=== PATIENT | male | born 1975 | race Caucasian/White ===

== ENCOUNTER 2016-09-27 18:16 | Day surgery (SDC) | payer OTHER ==
[2016-09-27] MEDS ORDERED: Glucagon,Human Recombinant 1 MG Vial IVPUSH ONE (18:23)
--- NOTE | 2016-09-27 18:29 | EDM.PDOC ---
ED HPI GENERAL MEDICAL PROBLEM - General Chief Complaint: ENT Problem Stated Complaint: PIECE OF STEAK STUCK IN THROAT Time Seen by Provider: 09/27/16 18:20 Source of Information: Reports: Patient History Limitations: Reports: No Limitations - History of Present Illness INITIAL COMMENTS - FREE TEXT/NARRATIVE: HISTORY AND PHYSICAL: History of present illness: [Patient comes to the emergency room complaining of a piece of steak stuck in his throat. Occurred just prior to ER arrival while he was eating. He is unable to swallow his spit, food or liquids. States that he has had similar episodes over the past couple of years but he is always able to move the food by drinking water. He has not had any success with this today. He has otherwise been feeling well. Complains of pressure over his sternal/epigastric area. Is unable to drink any fluids, and he spits it up immediately after swallowing. No history of surgery or hospitalizations. Had 4 alcoholic beverages this evening prior to arriving in the ER. Does not have a local primary care provider and has not been seen for healthcare in 3 years.] Review of systems: As per history of present illness and below otherwise all systems reviewed and negative. Past medical history: As per history of present illness and as reviewed below otherwise noncontributory. Surgical history: As per history of present illness and as reviewed below otherwise noncontributory. Social history: No reported history of drug or alcohol abuse. Family history: As per history of present illness and as reviewed below otherwise noncontributory. Physical exam: HEENT: Atraumatic, normocephalic. Oral mucous membranes are pink and moist. Neck supple no lymphadenopathy. Trachea midline. Lungs: Clear to auscultation, breath sounds equal bilaterally. Heart: S1S2, regular rate and rhythm. Abdomen: Bowel sounds are normoactive throughout. Soft, nondistended. Negative for masses, guarding or rebound. Pelvis: Stable nontender. Genitourinary: Deferred. Rectal: Deferred. Extremities: Atraumatic, without deformity. Ambulates without difficulty. Neurovascular unremarkable. Neuro: Awake, alert, oriented. Motor and sensory unremarkable throughout. Exam nonfocal. Therapeutics: [Glucagon 1 mg IV] Impression: [Food impaction] Plan: [Patient has no improvement in his symptoms after Glucagon. Dr. Nelson is contacted at 1905 to consult on patient and presents to see patient at 1930. Patient will be taken for EGD. Disposition and discharge to be completed by Dr. Nelson.] Definitive disposition and diagnosis as appropriate pending reevaluation and review of above. throat area Pain Score (Numeric/FACES): 6 Sternum Pain Score (Numeric/FACES): 4 - Related Data Allergies Allergy/AdvReac Type Severity Reaction Status Date / Time No Known Allergies Allergy Verified 09/27/16 18:20 Home Meds: Home Meds . [No Known Home Meds] 09/27/16 [History] ED ROS ENT - Review of Systems Review Of Systems: ROS reveals no pertinent complaints other than HPI. ED EXAM, ENT - Physical Exam Exam: See Below Course - Vital Signs Last Recorded V/S: Last Vital Signs Temp 98.4 F 09/27/16 20:13 Pulse 94 09/27/16 20:13 Resp 20 09/27/16 20:27 BP 137/88 09/27/16 20:13 Pulse Ox 95 09/27/16 20:27 - Orders/Labs/Meds Orders: Active Orders 24 hr Category Date Time Status Verify Patient Consent Obtain [RC] ASDIRECTED Care 09/27/16 20:02 Active Nothing per Oral After Midnight Diet [DIET] Diet 09/27/16 Dinner Active Lactated Ringers [Ringers, Lactated] 1,000 ml Med 09/27/16 20:17 Active IV ASDIRECTED Medication Orders Lactated Ringer's (Ringers, Lactated) 1,000 mls @ 125 mls/hr IV ASDIRECTED DEREK Last Admin: 09/27/16 20:11 Dose: 125 mls/hr Meds: Medications Generic Name Dose Route Start Last Admin Trade Name Freq PRN Reason Stop Dose Admin Lactated Ringer's 1,000 mls @ 125 mls/hr 09/27/16 20:17 09/27/16 20:11 Ringers, Lactated IV 125 mls/hr ASDIRECTED DEREK Administration Discontinued Medications Generic Name Dose Route Start Last Admin Trade Name Freq PRN Reason Stop Dose Admin Dexamethasone Confirm 09/27/16 20:15 Dexamethasone Administered 09/27/16 20:16 Dose 20 mg .ROUTE .STK-MED ONE Fentanyl Confirm 09/27/16 20:15 Sublimaze Administered 09/27/16 20:16 Dose 100 mcg .ROUTE .STK-MED ONE Glucagon 1 mg 09/27/16 18:23 09/27/16 18:31 Glucagen IVPUSH 09/27/16 18:24 1 mg ONETIME ONE Administration Midazolam HCl Confirm 09/27/16 20:16 Versed 1 Mg/Ml Administered 09/27/16 20:17 Dose 2 mg .ROUTE .STK-MED ONE Ondansetron HCl Confirm 09/27/16 20:15 Zofran Administered 09/27/16 20:16 Dose 4 mg .ROUTE .STK-MED ONE Propofol Confirm 09/27/16 20:15 Diprivan 20 Ml Administered 09/27/16 20:16 Dose 200 mg .ROUTE .STK-MED ONE Succinylcholine Chloride Confirm 09/27/16 20:15 Succinylcholine In Ns Pf Administered 09/27/16 20:16 Dose 200 mg .ROUTE .STK-MED ONE Departure - Departure Time of Disposition: 20:37 Disposition: DC/Tfer to Other 70 Clinical Impression: Food impaction of esophagus Qualifiers: Encounter type: initial encounter Qualified Code(s): T18.128A - Food in esophagus causing other injury, initial encounter - Discharge Information
--- NOTE | 2016-09-27 20:02 | PCM.SN ---
- Free Text/Narrative Note: food impaction, h/p dictated; [id number]; proceed w egd w poss fb extraction; rb dw pt, included but not limited to, bleeding/sore throat/infection/perforation, pt concurs and proceed
[2016-09-27] MEDS ORDERED: fentaNYL 100 MCG/2 ML SDV ONE ×2 (20:15→20:52)
[2016-09-27] MEDS ORDERED: Succinylcholine/Normal Saline 200 MG/10 ML Syringe ONE (20:15)
[2016-09-27] MEDS ORDERED: Dexamethasone 4 MG/ML 5 ML MDV ONE (20:15)
[2016-09-27] MEDS ORDERED: Ondansetron 4 MG/2 ML SDV ONE (20:15)
[2016-09-27] MEDS ORDERED: Propofol 200 MG/20 ML SDV ONE (20:15)
[2016-09-27] MEDS ORDERED: Midazolam 1 MG/ML 2 ML SDV ONE (20:16)
[2016-09-27] MEDS ORDERED: Lactated Ringers 1,000 ML IV SCH (20:17)
--- NOTE | 2016-09-27 20:27 | PCM.PREANE ---
Preanesthetic Assessment - Anesthesia/Transfusion/Family Hx Anesthesia History: No Prior Anesthesia Family History of Anesthesia Reaction: No - Review of Systems Gastrointestinal: Difficulty swallowing Other: Reports: None - Physical Assessment O2 Sat by Pulse Oximetry: 95 Respiratory Rate: 20 Vital Signs: Last Vital Signs Temp 36.9 C 09/27/16 20:13 Pulse 94 09/27/16 20:13 Resp 20 09/27/16 20:13 BP 137/88 09/27/16 20:13 Pulse Ox 95 09/27/16 20:13 Height: 5 ft 11 in Weight: 116.8 kg ASA Class: 1E Mental Status: Alert & Oriented x3 Airway Class: Mallampati = 1 Dentition: Reports: Normal Dentition Thyro-Mental Finger Breadths: 3 Mouth Opening Finger Breadths: 3 ROM/Head Extension: Full - Allergies Allergies/Adverse Reactions: Allergies Allergy/AdvReac Type Severity Reaction Status Date / Time No Known Allergies Allergy Verified 09/27/16 18:20 - Blood Blood Available: No - Acknowledgements Anesthesia Type Planned: General Anesthesia Pt an Appropriate Candidate for the Planned Anesthesia: Yes Alternatives and Risks of Anesthesia Discussed w Pt/Guardian: Yes Pt/Guardian Understands and Agrees with Anesthesia Plan: Yes PreAnesthesia Questionnaire HEENT History: Reports: None Cardiovascular History: Reports: None Respiratory History: Reports: None Gastrointestinal History: Reports: None Genitourinary History: Reports: None Musculoskeletal History: Reports: None Neurological History: Reports: None Psychiatric History: Reports: None Endocrine/Metabolic History: Reports: None Hematologic History: Reports: None Immunologic History: Reports: None Oncologic (Cancer) History: Reports: None Dermatologic History: Reports: None - Infectious Disease History Infectious Disease History: Reports: MRSA - Past Surgical History Respiratory Surgical History: Reports: None Musculoskeletal Surgical History: Reports: Other (See Below) Other Musculoskeletal Surgeries/Procedures:: Hand surgery - SUBSTANCE USE Tobacco Use Within Last Twelve Months: Snuff/Dip (1 can per day) Recreational Drug Use History: No - HOME MEDS Home Medications: Home Meds . [No Known Home Meds] 09/27/16 [History] - CURRENT (IN HOUSE) MEDS Current Meds: Current Medications Lactated Ringer's (Ringers, Lactated) 1,000 mls @ 125 mls/hr IV ASDIRECTED DEREK Last Admin: 09/27/16 20:11 Dose: 125 mls/hr Discontinued Medications Dexamethasone (Dexamethasone) Confirm Administered Dose 20 mg .ROUTE .STK-MED ONE Stop: 09/27/16 20:16 Fentanyl (Sublimaze) Confirm Administered Dose 100 mcg .ROUTE .STK-MED ONE Stop: 09/27/16 20:16 Glucagon (Glucagen) 1 mg IVPUSH ONETIME ONE Stop: 09/27/16 18:24 Last Admin: 09/27/16 18:31 Dose: 1 mg Midazolam HCl (Versed 1 Mg/Ml) Confirm Administered Dose 2 mg .ROUTE .STK-MED ONE Stop: 09/27/16 20:17 Ondansetron HCl (Zofran) Confirm Administered Dose 4 mg .ROUTE .STK-MED ONE Stop: 09/27/16 20:16 Propofol (Diprivan 20 Ml) Confirm Administered Dose 200 mg .ROUTE .STK-MED ONE Stop: 09/27/16 20:16 Succinylcholine Chloride (Succinylcholine In Ns Pf) Confirm Administered Dose 200 mg .ROUTE .STK-MED ONE Stop: 09/27/16 20:16
[2016-09-27] MEDS ORDERED: Ketorolac 30 MG/ML SDV ONE (20:39)
--- NOTE | 2016-09-27 21:06 | PCM.OPNOTE ---
- General Post-Op/Procedure Note Date of Surgery/Procedure: 09/27/16 Operative Procedure(s): egd w fb extraction Findings: see dictation [id number] Pre Op Diagnosis: food impaction Post-Op Diagnosis: erosive esophagitis and food impaction Anesthesia Technique: General ET tube Primary Surgeon: Dayo Nelson Complications: None Condition: Fair
--- NOTE | 2016-09-27 21:19 | PCM.POSTAN ---
POST ANESTHESIA ASSESSMENT - MENTAL STATUS Mental Status: alert - RESPIRATORY Respiratory Status: respiratory rate WNL, airway patent, O2 saturation stable - CARDIOVASCULAR CV Status: pulse rate WNL, blood pressure stable - GASTROINTESTINAL GI Status: no symptoms - PAIN Pain Score: 0 - POST OP HYDRATION Hydration Status: adequate & stable
--- NOTE | 2016-09-27 21:51 | PCM48HPAN ---
Post Anesthesia Note - EVALUATION WITHIN 48HRS OF ANESTHETIC Vital Signs in Normal Range: Yes Patient Participated in Evaluation: Yes Respiratory Function Stable: Yes Airway Patent: Yes Cardiovascular Function Stable: Yes Hydration Status Stable: Yes Pain Control Satisfactory: Yes Nausea and Vomiting Control Satisfactory: Yes Mental Status Recovered: Yes
[2016-09-28 00:07] VITALS: BP 119/67
--- NOTE | 2016-09-28 14:02 | HP ---
DATE OF : 1975 PRIMARY CARE PHYSICIAN: None PCP ADMISSION DIAGNOSIS: Food impaction. Consult from ER doctor, Dr. Foley. CONCERNING QUESTION: Food impaction. Consult was called. The patient was seen shortly after. HISTORY OF PRESENT ILLNESS: The patient is a 41-year-old gentleman, who had food impaction in the past, but did not seek medical help or see any doctor in the past and now, had another episode. The patient remarked 2 hours ago, he was eating a big meal and since then, he has pain in the epigastrium and cannot swallow anything. Anytime, he drank something or ate something, it came right back up and is hurting. Denied shortness of breath. Denied chest pain. Denied headache. Denied dizziness. Denied hemoptysis or hematemesis. PAST MEDICAL HISTORY: Significant for no diabetes, [place], CVA, or hypertension. FAMILY HISTORY: Noncontributory. SOCIAL HISTORY: The patient is a big time chewing tobacco user and denies alcohol abuse. ALLERGIES: Please refer to nursing note for detail. MEDICATIONS: Please refer to nursing note for detail. FAMILY HISTORY: Noncontributory. PHYSICAL EXAMINATION: GENERAL: A very pleasant, nice young gentleman, in no acute distress. The patient is pacing around the room comfortably. HEENT: Normocephalic, atraumatic. Sclerae anicteric. LUNGS: Clear to auscultation. HEART: Regular rate and rhythm. ABDOMEN: Soft, nondistended. No pulsating, tender midline abdominal structure. No surgical scar. Mild tenderness in the epigastrium. No rebound tenderness. ASSESSMENT AND PLAN: Food impaction in less than 2 hours and probably will require to remove the piece impacted food by esophagogastroduodenoscopy in a piecemeal fashion and probably go in and out of the throat more than 30 to 60 times or the patient can wait for a while and see whether the meat goes through. After the procedure, the patient's esophagus will be probably inflamed and probably will have a sore throat and also at risk for perforation, all this has been discussed with the patient. The patient required to proceed with the procedure and understands the risks involved. We are going to call in the team and proceed with esophagogastroduodenoscopy with foreign body extraction. Risks and benefits discussed. The patient concurred to proceed. LIANS / MODL /[id number] CC: MERT Matamoros
--- NOTE | 2016-09-28 14:02 | OR ---
SURGEON: Dayo Nelson MD DATE OF PROCEDURE: 09/27/2016 PREOPERATIVE DIAGNOSIS: Food impaction. POSTOPERATIVE DIAGNOSIS: Food impaction. PROCEDURE PERFORMED: EGD with foreign body extraction. COMPLICATIONS: None. FINDING: A very large piece of meat about the size of 5 cm in length and 1 cm by diameter stuck at the GE junction, it was removed by piecemeal. The GE junction has a frame-like structure and possible para esophagitis and certainly severe acid reflux. PROCEDURE: The patient was taken to the operating room and placed in the supine position. Upon induction of general endotracheal anesthesia, the patient was well lubricated. EGD was gently inserted through the oropharynx down the esophagus into the GE junction at 40, and over there, encountered a large piece of meat stuck there at the GE junction. There was no stricture, inflammation observed from this point. After the meat was removed, the GE junction was very inflamed and also with flame-like structure consists of para esophagitis. The meat was removed by piecemeal fashion, over 10 times, and entered the stomach. Rugae is normal in appearance Stomach has large amount of food and antrum was a little bit inflamed, does not have hiatal hernia. Duodenum did not try to get in, sucked out the air while scope pulling out. There was no more meat in the esophagus. PLAN: The patient will be discharged home from here and liquid diet for two days, 48 hours and taking PPI for at least one month and will have a followup appointment to see me in one to two weeks. As always, thank you for the kind referral. SHIV / CHEMA /[id number] CC: MERT Matamoros
== END 2016-09-27 22:54 | disposition home or self-care (01) ==
LOC: MW.ED 18:16 → MW.SDS 19:53
PROVIDERS: ATTEND Surgery
PROC: 0DC48ZZ Extirpation of Matter from Esophagogastric Junction, Via Natural or Artificial Opening Endoscopic (ICD-10-PCS; principal; 2016-09-27)
DX: T18.128A Food in esophagus causing other injury, initial encounter (principal); K20.9 Esophagitis, unspecified; F17.220 Nicotine dependence, chewing tobacco, uncomplicated; Z86.14 Personal history of Methicillin resistant Staphylococcus aureus infection
CPT/HCPCS: 43247; 96374; 99285; J1100; J1610; J1885; J2250; J2405; J3010; J7120; 00740; 99284; J2704